=== PATIENT | female | born 1960 | race Caucasian/White ===

== ENCOUNTER 2017-01-18 07:56 | Day surgery (SDC) | payer OTHER ==
[~2017-01-18 07:56] MED LIST: LIDOCAINE W/ SODIUM BICARB 0.5 ML SYR ONE; Lactated Ringers 1,000 ML PRIMARY IV ONE; fentaNYL Inj 100 MCG/2 ML VIAL ONE
--- NOTE | 2017-01-18 09:24 | GEN.OPNOTE ---
Colonoscopy Procedure Note Surgery Date: 01/18/17 Preoperative Diagnosis: History of chronic ulcerative colitis. Postoperative Diagnosis: History of chronic ulcerative colitis. Scar tissue and trabeculations in the proximal transverse colon. Small polyps in the proximal transverse colon, the mid transverse colon, and the sigmoid colon Procedure: Complete colonoscopy with multiple random biopsies as well as biopsy and destruction of small polyps. A hot snare polypectomy was done at 30 cm from the anal verge. Surgeon: Kareem Greenwood MD Anesthesia Provider: Robby Lugo CRNA Anesthesia Type: MAC Indications: Patient was diagnosed with chronic ulcerative colitis a year ago. Clinically she has done well. She is here for follow-up. Findings: Prep : [Excellent] Cecum : [Normal] Ascending : [Normal] Transverse : [Scar tissue with a trabecular pattern or a honeycomb type pattern. Very flat nondescript mucosa. Several small polyps proximally were biopsied and destroyed. Several polyps distally were biopsied and destroyed.] Sigmoid : [Scattered diverticuli. Polyps at 30 cm removed with a hot snare] Rectum : [Visually normal, biopsies taken] Digital Rectal Exam : [No significant perianal pathology] Terminal ileum:[Visually normal] A lubricated flexible colonoscope was inserted and passed to the blind end of the cecum. The terminal ileum was intubated and was visually normal. The scope was withdrawn into the cecum. The right colon appeared unremarkable. Random biopsies were taken. The scope was withdrawn to the hepatic flexure. Starting at the hepatic flexure and in the proximal transverse colon there is a trabecular or honeycomb pattern. The abnormal mucosa was thin. This appeared to be all chronic scar tissue. There were some small polyps proximally which were biopsied and destroyed. There is several polyps distally in the transverse colon which were biopsied and destroyed. The distal transverse colon appeared unremarkable as did the descending colon. Sigmoid colon showed scattered diverticuli. There was also polyps at 30 cm. These were snared with a hot snare and removed. Hemostasis was assured. The scope was withdrawn into the rectum which was visually normal. Biopsies were taken. Hemostasis was assured. The scope was withdrawn completing the procedure. Patient tolerated the procedure well without complication. She was taken to outpatient surgery in stable condition. Follow-up will be in my office on an as-needed basis. We will call the biopsy results when available.
[2017-01-18 10:01] VITALS: TEMP 96.9
[2017-01-18 10:03] VITALS: RESP 16
== END 2017-01-18 09:43 | disposition home or self-care (01) ==
LOC: SDSC 07:56
PROVIDERS: ATTEND Surgery
DX: K51.00 Ulcerative (chronic) pancolitis without complications (principal); K63.5 Polyp of colon
CPT/HCPCS: 45380; 45385; J2704; J3010; J7120